=== PATIENT | male | born 1955 | race Caucasian/White ===

== ENCOUNTER 2018-03-09 08:26 | Emergency (ER) | payer OTHER ==
[~2018-03-09] VITALS: Ht 165.1 cm; Wt 65.8 kg
--- NOTE | ~2018-03-09 | EKG ---
[address] [address] ELECTROCARDIOGRAM REPORT Name: CAROL ANN CORREA [id number] Admission: 03/09/18 Attend Phys: Discharge: 03/09/18 Date of : 53 Report #: [id number] THIS REPORT FOR: //name// [facility] ED Test Date: 2018-03-09 Test Time: 09:11:50 Pat Name: CAROL ANN CORREA Department: Room: Gender: M Pipeline Dispatcher: [facility] : 1955 Requested By: Cori Lyle Order Number: [id number] MD: Stan Diaz Measurements Intervals [place] Rate: 67 P: 76 MN: 130 QRS: -46 QRSD: 108 T: 76 QT: 439 QTc: 464 Interpretive Statements Sinus rhythm Left axis deviation Low voltage, extremity leads Compared to ECG 11/18/2015 15:59:18 Left-axis deviation now present Low QRS voltage now present Electronically Signed On 03-11-2018 11:04:01 BRICKLAYER SUPERVISOR by Stan Diaz [email or web address] <ELECTRONICALLY SIGNED> By: Stan Diaz MD 03/11/18 1104 0 0 Stan Diaz MD /EPI
[~2018-03-09 08:26] MED LIST: ADVAIR HFA115 MCG/21 INH; ALBUTEROL2.5 MG/0.1 INH; DOXYCYCLINE 10100 MG PO; EFFEXOR 5050 MG/1 T1 PO; LEVAQUIN 500 M500 M1 PO; MUCINEX TA600 MG/TA1 PO; PREDNISONE 10 M10 MG PO; PROTONIX40 M1 PO
[2018-03-09 09:00] LABS: ABSOLUTE NEUTROPHILS 6.5 thou/uL (1.4-8.2); BASOPHILS 0.9 % (0.0-2.0); EOSINOPHILS 0.7 % (0.0-3.0); HEMATOCRIT 37.6 % (42.0-52.0); HEMOGLOBIN 12.8 gm/dL (14.0-18.0); LYMPHOCYTES 13.3 % (24.0-44.0); MCH 30.7 pg (26.0-34.0); MCV 90.2 fL (80.0-100.0); MONOCYTES 9.4 % (1.0-8.0); PLATELET COUNT 256 thou/uL (150-400); POLYS 75.7 % (36.0-66.0); RBC 4.17 mil/uL (4.50-6.00); RDW 16.5 % (10.5-14.5); WBC 8.6 thou/uL (4.0-11.0)
[2018-03-09 09:15] LABS: CALCIUM 9.4 mg/dL (8.5-10.1); CREATININE 0.9 mg/dL (0.7-1.3); POTASSIUM 4.1 mmol/L (3.5-5.1)
[2018-03-09 10:21] LABS: AMP/METHAMP Negative (Negative); BARBITURATES Negative (Negative); BENZODIAZEPINES Negative (Negative); COCAINE Negative (Negative); METHADONE Negative (Negative); OPIATES Negative (Negative); PCP Negative (Negative)
[2018-03-09 15:28] VITALS: BP 170/89
== END 2018-03-09 15:32 | disposition home or self-care (01) ==
LOC: ER 08:26
PROVIDERS: Student in an Organized Health Care Education/Training Program
DX: F30.9 Manic episode, unspecified (principal); F17.210 Nicotine dependence, cigarettes, uncomplicated; J44.9 Chronic obstructive pulmonary disease, unspecified; Z90.49 Acquired absence of other specified parts of digestive tract

== ENCOUNTER 2018-03-15 16:29 | Emergency (ER) | payer OTHER ==
[~2018-03-15] VITALS: Ht 165.1 cm; Wt 65.8 kg
[2018-03-15 17:02] LABS: URINE BILIRUBIN NEGATIVE (Negative); URINE BLOOD NEGATIVE (Negative); URINE CLARITY CLEAR; URINE COLOR YELLOW; URINE GLUCOSE-RANDOM* NEGATIVE (Negative); URINE KETONES 1+ (Negative); URINE NITRITE NEGATIVE (Negative); URINE PROTEIN (DIPSTICK) NEGATIVE (Negative); URINE SPECIFIC GRAVITY 1.025 (1.005-1.035); URINE UROBILINOGEN 0.2 E.U./dl (0.2-1.0)
[2018-03-15 17:03] LABS: URINE LEUKOCYTES NEGATIVE (Negative)
[2018-03-15 17:08] LABS: AMP/METHAMP Negative (Negative); BARBITURATES Negative (Negative); BENZODIAZEPINES Negative (Negative); COCAINE Negative (Negative); METHADONE Negative (Negative); OPIATES Negative (Negative); PCP Negative (Negative)
[2018-03-15 18:03] VITALS: BP 123/72
== END 2018-03-15 17:50 | disposition home or self-care (01) ==
LOC: ER 16:29
PROVIDERS: Physician Assistant
DX: F31.9 Bipolar disorder, unspecified (principal); J44.9 Chronic obstructive pulmonary disease, unspecified; Z90.49 Acquired absence of other specified parts of digestive tract

== ENCOUNTER 2018-03-20 06:18 | Inpatient (IN) | payer OTHER ==
[~2018-03-20] VITALS: Ht 162.6 cm; Wt 67.6 kg
--- NOTE | ~2018-03-20 | D ---
[facility] [place] [address] DISCHARGE SUMMARY Name: CAROL ANN CORREA Room #: 522A-A DIS IN M.R.#: [id number] Admission: 03/20/18 Attend Phys: Murray Cooper DO Discharge: 03/27/18 Date of : 53 Report #: [id number] THIS REPORT FOR: //name// CC: Murray Cooper FAM physician/PCP DATE OF SERVICE: 03/27/2018 ATTENDING PHYSICIAN: Murray Cooper DO RATE EXAMINER: Axel Joya M.D. REASON FOR ADMISSION: Acute psychosis, referred by [facility] Emergency Room. DISCHARGE DIET: Regular. ACTIVITY LEVEL: As tolerated. DISCHARGE DIAGNOSES: He was discharged to the [facility] Homeless fpc. Psychiatric appointment is with a ____ on 03/29/2018 at 10:30 a.m. [facility] at [place], [place], in [place], [place]. DISCHARGE MEDICATIONS: Trileptal 300 mg twice a day for mood stabilization. He was given a prescription supply for 1 week, as well as continue risperidone 3 mg twice a day given for 1 week and he was supplied with that courtesy the hospital. HOSPITAL COURSE: He was admitted hypervigilant and impulsive for several days, we have had some incidents with him pulling the panic alarm, exhibiting himself, being a general nuisance. He was not clearly physically violent, though he did get several intramuscular injections. I do not think he had to be restrained for any of those. As the hospitalization wore on he was interested in being picked up by his brother and he has a son, Braulio, in [place], [place]. Unfortunately, he has no durable power of erisa attorney or guardian and he was willing to make his son, Braulio, his DPOA, which was carried out. However, the patient does not have any health insurance, certainly no Medicaid, and he is not ill enough where he would be kept for guardianship and conservatorship as he is able to perform his activities of daily living and has basic financial awareness. The hope is that the case management at [facility] will help with his medication compliance. I think in the long run, the patient will need a guardianship, conservatorship, and a placement. No procedures were performed. Laboratories done on the showed hemoglobin 13.2; hematocrit 38.2; white count 8.3 and platelet count 267,000. He was hyperammonemic with a level of 50. There is concern for alcoholism. [address] [address] DISCHARGE SUMMARY Name: CAROL ANN CORREA Room #: 522A-A DIS IN .R.#: [id number] Admission: 03/20/18 Attend Phys: Murray Cooper DO Discharge: 03/27/18 Date of : 53 Report #: [id number] DISCHARGE DIAGNOSIS: Bipolar 1 disorder, most recent episode manic with psychotic features, improved. He has a history of marijuana and meth use, alcohol use, unknown degree. The patient was not particularly admitting. Tobacco use disorder. The patient's TSH is 1.470, total T3 110, and free T4 0.8. UDS was negative. Alcohol was negative. Urinalysis was negative as well. Prognosis is guarded to poor given chronic noncompliance, substance use, homelessness, failure to follow up at the [facility] setting. VITAL SIGNS: At discharge as follows: Temperature 36.2, pulse 84, respirations 18, BP 118/81 and pulse ox 97%. GENERAL: Well-developed, well-nourished male wearing glasses. Attention and concentration limited. Thought process linear and goal directed. Thought content focused on discharge, not going to a homeless fpc. ____ formally tested. Insight limited. Judgment limited. Fund of knowledge below average. By: [id number] Mary Jo Almanza, SAEED /nt
[2018-03-20 08:00] VITALS: BP 156/118
[2018-03-20 13:49] VITALS: BP 130/77
[2018-03-20 14:04] LABS: ABSOLUTE NEUTROPHILS 5.7 thou/uL (1.4-8.2); BASOPHILS 0.7 % (0.0-2.0); EOSINOPHILS 3.2 % (0.0-3.0); HEMATOCRIT 38.2 % (42.0-52.0); LYMPHOCYTES 19.9 % (24.0-44.0); MCH 30.9 pg (26.0-34.0); MCHC 34.1 g/dL (28.0-37.0); MCV 90.7 fL (80.0-100.0); MONOCYTES 7.5 % (1.0-8.0); PLATELET COUNT 267 thou/uL (150-400); POLYS 68.7 % (36.0-66.0); RBC 4.22 mil/uL (4.50-6.00); WBC 8.3 thou/uL (4.0-11.0)
[2018-03-20 14:15] LABS: CALCIUM 8.9 mg/dL (8.5-10.1); CREATININE 0.8 mg/dL (0.7-1.3); POTASSIUM 4.5 mmol/L (3.5-5.1)
[2018-03-20 14:19] LABS: ALBUMIN 3.3 g/dL (3.4-5.0); MAGNESIUM 1.9 mg/dL (1.8-2.4); PHOSPHORUS 4.6 mg/dL (2.5-4.9); TOTAL BILIRUBIN 0.3 mg/dL (<0.1-1.0); TOTAL PROTEIN 7.5 g/dL (6.4-8.2)
[2018-03-20 16:44] LABS: URINE BILIRUBIN NEGATIVE (Negative); URINE BLOOD NEGATIVE (Negative); URINE CLARITY CLEAR; URINE COLOR YELLOW; URINE GLUCOSE-RANDOM* NEGATIVE (Negative); URINE KETONES NEGATIVE (Negative); URINE LEUKOCYTES NEGATIVE (Negative); URINE NITRITE NEGATIVE (Negative); URINE PROTEIN (DIPSTICK) NEGATIVE (Negative); URINE SPECIFIC GRAVITY < 1.005 (1.005-1.035); URINE UROBILINOGEN 0.2 E.U./dl (0.2-1.0)
[2018-03-20 16:50] LABS: AMP/METHAMP Negative (Negative); BARBITURATES Negative (Negative); BENZODIAZEPINES Negative (Negative); COCAINE Negative (Negative); METHADONE Negative (Negative); OPIATES Negative (Negative); PCP Negative (Negative)
--- NOTE | 2018-03-20 18:19 | NUR ---
PT ARRIVED UNIT ON CART AT 0800H. PT ALERT. PT ABLE TO AMBULATE SELF TO BED. PT ABLE TO TOLERATED MEALS AND ATTEND GROUP. PT NEW ORDERS RECEIVED AND ACKNOWLEDGED. PT ABLE TO TORELATE MEDS. PT IS HYPERVERBAL AND INTRUSIVE. PT REQUIRES FREQUENT REDIRECTION. PT CURRENTLY SLEEPING IN ROOM AND CONTINUES TO BE MONITORED FOR SAFETY.
[2018-03-20 19:41] VITALS: BP 107/80
--- NOTE | 2018-03-21 00:17 | NUR ---
The patient has been resting quietly in bed at this time. Alert et oriented x 3. Makes needs known. Walks with a steady gait. Very hyperverbal earlier in the shift. Earlier in the shift, the patient was asking for snacks continually. He received one, along with juice, and his medications prior to going to bed. Denies pain earlier in the shift. Remains on 12 minute checks for his safety.
--- NOTE | 2018-03-21 05:35 | NUR ---
The patient has been sleeping most of the security shift supervisor. Resp. even, and unlabored. Remains on checks for the patient's safety.
--- NOTE | 2018-03-21 05:48 | NUR ---
The patient slept 6.2 hours last night.
--- NOTE | 2018-03-21 09:52 | NUR ---
ASSUMED PATIENT CARE AT 0700 AM. PATIENT LYING IN BED,SLEEPING. AWAKENED FOR BREAKFAST AT 0745. PATIENT DRESSED SELF, CAME TO BREAKFAST, ATE 100% OF MEAL. HYPERTALKATIVE, PACING, SPEAKING LOUDLY. DIFFICULT TO REDIRECT. COMPLIANT WITH MEDICATIONS. INTRUSIVE, INTERRUPTIVBE. DOES NOT SHOW SIGNS OF DEPRESSION; PSYCHOTIC BEHAVIOR. REDIRECT POSSIBLE; CONTINUE TO MONITOR.
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
[2018-03-21 11:33] VITALS: BP 144/68
[2018-03-21 12:28] VITALS: BP 140/81
--- NOTE | 2018-03-21 16:00 | NUR ---
PATIENT'S BEHAVIOR WAS LOUD, DISRUPTIVE AND IRRADICAL THROUGHOUT THE MORNING. MEKA ADMINISTERED PRN'S THAT WERE ON PATIENT'S E-MAR, WELL A NEW ORDER FOR ZYPREXA, 20 MG IM AT 11:50 A.M. ABOUT TEN MINUTES AFTER THE IM, PATIENT WAS OBSERVED SLEEPING WHILE SITTING UP IN THE DAYROOM. AT APPROXIMATELY 12:30, PATIENT WALKED INTO HIS ROOM AND LAID HIMSELF DOWN ON HIS BED. PATIENT HAS BEEN SLEEPING SINCE THAT TIME. TWELVE MINUTES CHECS BEING DONE. CONTINUE TO MONITOR.
--- NOTE | 2018-03-21 18:06 | NUR ---
PATIENT GOT UP TO EAT DINNER; HAS BEEN LOUD AND INTRUSIVE, TO A LESSER DEGREE THAN THIS A.M. HAS BEEN DEMANDING AND CONSTANTLY ASKING FOR OTHER PEOPLE'S FOOD, AND TEA, AND OTHER SUPPLIES; I.E., WATER PITCHER. PATIENT COMPLIANT WITH MEDICATIONS. CONTINUE TO MONITOR.
[2018-03-21 20:03] VITALS: BP 100/53
--- NOTE | 2018-03-21 20:55 | NUR ---
ASSUMED PATIENT CARE AT APPROXIMATELY 1900. VERBAL REPORT RECEIVED FROM MAGALYS HARTLEY. PATIENT PRESENT IN THE DAYROOM UPON ARRIVAL TO SHIFT. LOUD. INTRUSIVE. IMPULSIVE. DIFFICULT TO VERBALLY REDIRECT USING THERAPEUTIC COMMUNICATION AND ASSESSMENT OF ANY UNMET NEEDS. RACING THOUGHTS. HYPERVERBAL SPEECH. FLIGHT OF IDEAS. DANGER TO SELF WITH POOR BOUNDARIES AND OTHER PATIENTS ON THE UNITS. PATIENT IN OTHER PATIENTS PERSONAL SPACE WITH CONSTANT VERBAL REDIRECTION AND ENCOURAGEMENT TO RESPECT OTHER PATIENTS UTILIZED WITH SUCCESS FOR SHORT PERIODS OF TIME ONLY. CONTACT DR. SEPULVEDA, PSYCHIATRIST LABORATORY AIDE, PROVIDED VERBAL REPORT ON PATIENT BEHAVIORS INCLUDING IMPULSIVENESS AND POOR BOUNDARIES WITH OTHER PATIENTS PERSONAL SPACE, TOUCHING PATIENTS SHOULDERS WITHOUT CONSENT, AND ATTEMPTING TO REACH OVER THE NURSING STATION DOOR TO OPEN THE DOOR AND ENTER THE NURSING STATION. NEW ORDERS RECEIVED FOR HALDOL 5MG IM NOW, BENADRYL 25MG NOW AND ATIVAN 1MG IM NOW. TORBAD PER POLICY. CONTACTED SECURITY TO PROVIDE STANDBY MINER PICK FOR PATIENT AND STAFF SAFETY. PATIENT COMPLIED WITH INJECTIONS AFTER EDUCATION, LIFTING UP SHIRT, AND INJECTIONS PLACED IN LEFT VASTUS LATERALIS. TOLERATED WELL. PATIENT COOPERATIVE WITH STAFF TO REMAIN IN ROOM TO ALLOW MEDICATIONS TO WORK THERAPEUTICALLY AND DECREASE STIMULI. ALARM SET TO ALERT AND EDUCATION PROVIDED TO PATIENT. VERBALIZED UNDERSTANDING. PT APPEARANCE IS DISHEVELED THIS SHIFT. APPETITE IS GOOD, CONSUMING ALL OF HIS EVENING SNACK AND HAD WATER REFRESHED AT SNACK AND AT BEDISIDE. PT HAS FLIGHT OF IDEAS THIS EVENING AND A VERY SHORT ATTENTION SPAN, REPORTS "I AM MANIAC". MEDICATION COMPLIANT WITH SCHEDULED MEDICATIONS. PREOCUPPIED THOUGHTS REGARDING DISCHARGE "TOMORROW I HOPE". PATIENT APPEARS TO LACK IMPULSE CONTROL AND POOR JUDGEMENT IN SOCIAL SITUATIONS WITH POOR BOUNDARIES AND VERY INVASIVE IN OTHERS SPACE AND CONVERSTAIONS. BED IN LOWEST POSITION. DRINK WITHIN REACH. ALARM ACTIVATED. VERBALLY DENIES ANY FURTHER NEEDS AT THIS TIME. WILL CONTINUE TO MONITOR PT CLOSELY FOR SAFETY AND EFFECTIVENESS OF PRN MEDICAITON ADMINISTERED, SEE MAR.
--- NOTE | 2018-03-21 21:59 | NUR ---
CONTACTED DR. SEPULVEDA, PAPER COATING MACHINE OPERATOR PSYCHIATRIST, PROVIDED VERBAL REPORT PATIENT FOUND TO HAVE A BLANKET, TIED IN KNOT, ON BED. ASSESSED SUICIDAL IDEATION WITH OR WITHOUT A PLAN AND PATIENT RESPONDED WITH NONSENSICAL STATEMENTS AND FLIGHT OF IDEAS STATING "GEORGES DUDLEY. NAYELY LOREDO. MY LIVER IS BAD FROM DRINKING". NO STATEMENTS OF SUICIDAL IDEATION. CONFUSION CONTINUES WITH IMPULSIVE BEHAVIOR INCLUDING POOR BOUNDARIES WITH STAFF, HYPERVERBAL/LOUD SPEECH. NO VERBAL RESPONSE PROVIDED WHEN ASSESSED IF PATIENT WOULD REMAIN SAFE ON UNIT. RECEIVED NEW PHYSICIAN ORDERS FOR WITHIN LINE OF SIGHT FOR SAFETY, NOTIFIED [employer] DEVELOPER'S OF NEW ORDER AND DWAINE ENGLE, CURRENTLY REMAINS WITHIN LINE OF SIGHT OF PATIENT TO ENSURE SAFETY.
--- NOTE | 2018-03-21 23:29 | NUR ---
PATIENT HAS REMAINED IN BED SINCE ADMINISTRATION OF PRN IM MEDICATION, SEE MAR. CONTINUES WITH WITHIN LINE OF SIGHT ORDER FOR SUICIDE PRECAUTIONS AFTER FINDING A BLANKET IN HIS ROOM TIED IN KNOTS. ALL ADDITIONAL BLANKETS AND SHEET FROM THE ADDITIONAL BED IN HIS ROOM REMOVED. CURRENTLY ZITA ISIDRO MONITORING PATIENT PER PHYSICIANS ORDER. WILL CONTINUE TO MONITOR PT CLOSELY TO ENSURE ANY ADDITIONAL UNMET NEEDS ARE MET.
--- NOTE | 2018-03-22 05:41 | NUR ---
PATIENT AMBULATED OUT OF BED THIS CENTER CONSULTANT AND WENT STRAIGHT TO THE DAY AREA. REMAINS ON WITHIN LINE OF SIGHT, KADIE ISIDRO, CURRENTLY REMAINS ON WITHIN LINE OF SIGHT AND CHARTED APPROPRIATELY ON ROUND SHEET. PATIENT ORIENTED TO TIME THIS MORNING AND CHOSE TO "TAKE A NAP FOR A WHILE", AMBULATED BACK TO BED. ONCE IN BED PATIENT PREOCCUPIED THOUGHTS OF HIS BELONGINGS INCLUDING HIS "WALLET" DEMANDING FOR THIS NURES TO CONTACT HIS PLACE IN [place] TO FIND HIS WALLET. ORIENTED PATIENT TO TIME OF MORNING AND ENCOURAGED PATIENT TO MAKE ANY PHONE CALLS LATER THIS MORNING WHEN THE PHONES ARE TURNED ON FOR PATIENT USE, PATIENT AGREED TO MAKE PHONE CALLS LATER THIS MORNING. BED REMAINS IN LOW POSITION, ALARM ACTIVATED WITH NO EXTRA BLANKETS AND OR SHEETS AT BEDSIDE FOR PATIENT SAFETY. PATIENT IS MORE CLEAR THIS MORNING STATING "I JUST LIKE TO TIE MY BLANKETS SOMETIMES" WHEN ASSESSED REASON FOR TIEING BLANKETS FOUND IN ROOM. VERBALLY AGREES TO REMAIN SAFE ON UNIT STATING "HELL NO I WASN'T GOING TO HARM MYSELF WITH THE BLANKET". CONTINUES ON WLS MONITORING PER PHYSICIANS ORDER/WILL ASSESS PATIENT THIS MORNING AND NEED TO CONTINUE WLS ORDERS. SLEPT WELL OVERNIGHT APPROXIMATELY 10.5 HOURS.
--- NOTE | 2018-03-22 08:56 | NUR ---
PATIENT IN BED AT 0700 A.M., AROSE SHORTLY AFTER. USED THE BATHROOM, THEN TO DINING ROOM, WAITED FOR BREAKFAST. ATE 75-90% OF BREAKFAST. BP LOW, 85/55, HR 63. NURSE WILL RE-CHECK AFTER MORNING GROUP, WHICH PATIENT IS ATTENDING AT THE PRESENT TIME. COMPLIANT WITH MEDICATIONS. CONTINUE TO MONITOR.
--- NOTE | 2018-03-22 09:08 | NUR ---
PATIENT HAS FLAT AFFECT THIS A.M., NO BEHAVIORS, CALM MOOD TO DATE THIS SHIFT. CONTINUE TO MONITOR.
[2018-03-22 12:38] VITALS: BP 85/55
[2018-03-22 20:40] VITALS: BP 94/62
--- NOTE | 2018-03-23 02:54 | NUR ---
ASSUMED CARE AT 1900, ASSESSMENT COMPLETED IN PT ROOM; IRRITABLE AT HAVING LIGHT TURNED ON BUT AGREEABLE FOR NURSING ASSESSMENT TO BE DONE. DENIED ANY HALLUCINATIONS, SI/HI, AND NO BEHAVIORS EXHIBITED. DENIED GI UPSET, PAIN, OR RESP DISTRESS. WALKED OUT TO ACTIVITY ROOM ONE TIME, GOT A CUP OF WATER, SAT FOR ABOUT 5 MINUTES THEN RETURNED TO ROOM AND LAID DOWN. ACCEPTED HS MEDS WITHOUT INCIDENT. PT DID ASK IF HIS SISTER, MITCH, KNEW HE WAS IN THE HOSPITAL; STATED SHE HAD BROUGHT HIM TO PSYCH UNITS IN THE PAST, SAYS HE DOES NOT KNOW HER PHONE NUMBER TO CALL HER. HAS NO OTHER COMPLAINTS, HAS SLEPT THIS SHIFT, WILL CONTINUE TO MONITOR.
[2018-03-23 08:52] VITALS: BP 91/44
--- NOTE | 2018-03-23 13:46 | NUR ---
ASSUMED PT CARE AT 0700H. PT ALERT. PT ABLE VERBALISE CONCERN. PT HAS NO SUCIDIAL IDEATION TO HURT SELF OR OTHER. PT BP MED HELD BP WAS 91/44. PT STATES NO LIGHTHEADNESS. PT ABLE TO TOLERATE MEDS AND BREAKFAST. PT AMBULATES STEADY. PT TALKS LOUD AND HAS BRIEF ATTENTION SPAN OF IDEAS. PT CONCERN OF PLAYOFFS. PT REQUIRES FREQUENT REDIRECTIONS TO SET LIMITS FOR ACTIVITIES. PT CONTINUES TO BE MONITORED FOR SAFETY [id number].
--- NOTE | 2018-03-23 15:33 | NUR ---
Pt is a 62 year-old male dignosed with Psychosis, Unspecified disorder. Pt is really talkative and has flight of ideas. Pt stated " Augustine Driver and Carey Hurtadoyer are looking for me because they flew with me long time ago. They don't want me to fly". Pt met with SW in the office and completed assessment. Pt was cooperative, but was being redirected quiet often during the meeting. Pt had difficulty focusing and would jump from conversation to something unrelated to questions asked. Pt appeared to be tired, but reported that he slept 9 hours last night. Pt discussed homelessness and stated he's been homeless for a long time. He goes to [facility] in [place] to get food. Pt reported having housing voucher and his brother has it. SW contacted brother and spoke with him. Abimael reported that Pt does not have housing voucher, but received a form to fill out for the voucher. He futher stated that it's process and that he doen't think Pt will pass interview in order to be approved for voucher. Abimael further reported Pt has no place to stay and has been in and out of intermediate due to his behaviors. Pt reported releasing from [facility] in February 2018. He stated Pt spent most of his money staying in motel and got kicked out because of breaking things. Abimael stated Pt gets figetty and starts throwing and breaking things everywhere he goes. He reported he can't get Pt to do anything and keeps losing Pt by not knowing his locations most of the time. Abimael reported seeing Pt in youtube video with hospital gown on walking in the street and people were making fun of him. Abimael sounds upset about that and stated "that's degrading and I don't know who would do that to him". He reported [facility] was trying to put Pt in half-way, but he got arrested and was sent to intermediate. ANTONIO dicussed possible placement and DPOA/guardianship and Abimael stated Pt's son Mormonism would be the person assigned DPOA. ANTONIO provided Abimael Lopes's number to f/u. Pt talked about his two Sons, Mormonism and Hunter Rojas. He reported that Hunter lives in [facility], but is homeless and Mormonism lives in [place] and is the oldest child. Pt reported working for [employer] long time ago and got fired in 1997 and never worked since. Pt stated he receives $1580 in disability and his check is mailed to [address] [facility] (Marcella's home, a longtime friend). He reported that he doesn't have any identification documents after the police took his wallet. SW will continue to communicate with the family and speak with Mormonism when he calls SW to beth possible placement/stable housing for Pt upon d/c.
--- NOTE | 2018-03-23 17:47 | NUR ---
PATIENT TALKETIVE AND RAISING FROM VOICE FROM TIME TO TIME ALL THROUGHTOUT THE DAY. WAS ATTEMPTING TO BE DISRUPTIVE, BUT WAS ABLE TO BE REDIRECTABLE. REMAINS GRANDIOSE, CONTINUING CLOSE MONITORING. ATE 100% OF LUNCH AND DINNER. WILL CONTINUE TO ASSESS AND ASSIST WITH ADLs NEEDED.
[2018-03-23 19:36] VITALS: BP 112/73
--- NOTE | 2018-03-23 20:16 | NUR ---
ASSUMED PATIENT CARE AT APPROXIMATELY 1900. RECEIVED REPORT FROM OFF GOING RN. PATIENT IN DAYROOM UPON ARRIVAL TO SHIFT WITH VERY LOUD VOICE. INTRUSIVE WITH STAFF. POOR BOUNDARIES WITH STAFF AND PATIENTS, ATTEMPTING TO TOUCH PATIENT/STAFF, HUG STAFF. SEXUAL PREOCCUPATION THIS SHIFT, MAKING SEVERAL COMMENTS TO FEMALE STAFF "GIVE ME A KISS". "COME BE MY GIRLFRIEND AND SIT BY ME", WHILE POINTING AT THE SEAT NEXT TO HIM. PROVIDED THERAPEUTIC VERBAL REDIRECTION TO REMAIN WITH APPROPRIATE BOUNDAIRES, RESPECT STAFF AND PATIENTS, AND TO REMAIN AT APPROPRIATE LEVEL OF VOICE FOR OTHER PATIENTS ON THE UNIT. PATIENT IS FORGETFUL THIS SHIFT WITH REPEATING QUESTIONS TO THIS NURSE INCLUDING SEVERAL REQUESTS FOR MEDICATION THAT WAS ALREADY ADMINISTERED THIS HS. PATIENT NOT SUCCESSFUL WITH VERBAL REDIRECTION ATTEMPTS AND THERAPEUTIC SUPPORT. ZYPREXA PO PRN ADMINISTERED FOR PSYCHOSIS AND CONTINUING ESCALATION. CONTINUES WITH HYPERVERBAL SPEECH, FLIGHT OF IDEAS, LOUD VOICE, REPEATING QUESTIONS AND STATEMENTS. APPEARANCE IS POOR, ENCOURAGED HYGIENE TASKS THIS EVENING APPEARANCE IS DISHEVELED, HAIR UNKEMPT, OWN SHIRT IS UNCLEAN, WEARING GOWN BOTTOMS WRINKLED AND DIRY, YELLOW SLIPPER SOCKS WITH PERSONAL HOUSE SLIPPERS. GAIT IS STEADY. IMPULSIVE, POOR JUDGEMENT AND INSIGHT. PATIENT IS POSSIBLY RESPONDING TO INTERNAL STIMULI, WAVING AT UNSEEN OTHERS AND SMILING INAPPROPRIATELY. FLIGHT OF IDEAS. ALERT AND ORIENTED TO SELF AND INPATIENT UNIT ONLY, NOT HOSPITAL NAME. APPETITE IS GOOD CONSUMING ALL OF HS SNACK WITH ICE WATER REFRESHED. VERBALLY DENIES ANY UNMET NEEDS. WILL CONTINUE TO MONITOR PT PER PHYSICIANS ORDER FOR SAFETY AND ANY ADDITIONAL UNMET NEEDS.
--- NOTE | 2018-03-23 22:45 | NUR ---
PATIENT SITTING IN DAY AREA, WATCHING GAME. CONTINUES TO REMAIN IMPUSLIVE, INTRUSIVE, LOUD, INTERRUPTING STAFF AND OTHER PATIENTS, SEXUALLY PREOCCUPIED TOWARDS STAFF CONTINUING TO REQUEST KISSES, HUGS, AND TO BE HIS "GIRLFRIEND". ATTMPTS AT VERBAL REDIRECTION, DISTRACTION, COMFORT NOT SUCCESSFUL AND CONTINUES BEHAVIORS. PHYSICIAN CONTACTED, DR. SEPULVEDA, AND REPORTED PATIENT REQUEST FOR SLEEP AID OR TO "CALM DOWN". NEW ORDER RECEIVED FOR ZYPREXA 5MG PO NOW, GIVEN, PATIENT COMPLIANT, AND EDUCATION PROVIDED PRIOR TO ADMINISION. WILL CONTINUE TO MONITOR FOR SAFETY PER ORDER.
--- NOTE | 2018-03-24 06:30 | NUR ---
PATIENT SLEPT WELL OVERNIGHT AFTER SECOND DOSE OF ZYPREXA ADMINISTERED PER ORDER. NO DIFFICULTY STAYING ASLEEP, AMBULATING OUT OF BED X 1 TO VOID AND BACK TO BED. SLEP 7.5 HOURS OF SLEEP.
[2018-03-24 09:30] VITALS: BP 113/59
--- NOTE | 2018-03-24 13:27 | NUR ---
ANTONIO received call on 03/23/18 ([phone]) from Pt's son Braulio. SW invited Pt in the office to be part of the phone conversationas Pt wanted to speak with his son. ANTONIO discussed DPOA/Guardianship with Braulio and possible placement. He stated that he has been trying to place his father, but has been difficult due to living in [place]. And also his uncle has had a hard time locating Pt due to homelessness. Braulio stated that he wants to be involved in Pt's care and is willing to be contacted and be part of th etreatment plan meeting over the phone. He provided Pt's sister Landy Rojas ([phone]) to be contacted if needed and stated she wants to be involved as well. Braulio and Pt agreed for Braulio to be his DPOA/gaurdian. ANTONIO had US Jain as witness when both parties agree to DPOA designate. ANTONIO provided Braulio our fax ([phone]) number to fax over DPOA form and informed him that another SW (Willis Andersen will continue to work with Pt as this SW only works on weekend. ANTONIO also indicated to Braulio that SW will f/u with him to notify date and time of family meeting for treatment plan. Pt and his son had a positive and heartfelt conversation. Pt informed his son that he has housing voucher and Varghese has it. ANTONIO clarified that information and explained to Braulio that Pt received form in the mail to fill out to start process of possibly obtain housing voucher. Braulio stated he understands. He stated he will f/u on 03/25/18.
--- NOTE | 2018-03-24 13:30 | NUR ---
ASSUMED PT CARE AT 0700H. PT ALERT. PT HAS NO S/S OF DISTRESS. PT STATES NO THOUGHTS OF HARMING SELF OR OTHERS. PT COOPERATIVE WITH THERAPY. PT ALSO HAD SHOWER. PT SLEPT LATER. PT CURRENTLY EATING IN THE DINING ROOM. PT CONTINUES TO BE MONITORED FOR SAFETY [id number].
--- NOTE | 2018-03-24 14:00 | NUR ---
SW met with PT in her office and reviewed DPOA form and ensured that Pt undersatnds the reason for having DPOA. Pt stated he understood and still wants Buddhist to be his DPOA. SW assisted Pt with filling out form. SW did not have form notarized as Dr. Cooper previpously stated that he will have the public safety director come to [facility] to notarize the document had already left. While SW was meeting with Pt, Landy, Pt's sister called ([phone]) on 03/24/18 at 9:44-10:34 and inquired about Pt and his care. SW asked Pt to be included in the conversation. Pt and Landy spoke for a few minutes. Pt seemed happy to hear from his sister as well as Landy. They both cried as they talked with each other. SW then asked Pt if he authorizes SW to discuss his care and d/c plan with Landy and Pt agreed. SW then explained to Landy that Pt might be d/c to a halfway because Pt cannot live independenly at this time. However, lack of insurance (Medicaid) may pose difficulty of Pt getting into a halfway. ANTONIO informed Landy that the medical team will have a family meeting to further discuss d/c plan this week before making a firm decision. Landy continued to speak with Pt and provided updates about other family memebers. Landy continued to speak with SW after Pt left. Landy stated that she wants to be involved as well. Landy reported that Pt's nephew's house is not a good enviroment for him to be in as they drink and do illegal drugs. She also reported that Pt's other son, Hunter should not be notified of Pt's location as he takes Pt's money and leaves Pt outside. She stated that "Hunter will take Raffaele's money and would not even open the door for him. He would go outside to talk to him and then went back inside and close the door on his face". Landy stated Pt also has a friend by the name of Marcella Jimenez who receives Pt's check in the mail. "Marcella refuses to give the check to Pedro until Pedro pays her". ANTONIO explained that if Pt's being taken advantage of or financially abused, SW will hotline the inviduals involved. SW encouraged Landy to discussed the issue with all accuracy during family meeting so hotline call can be made if necessary. Landy agreed. At the end of the conversation, Landy asked SW to tell Pt that "I love him very much". Landy and Pt had verbally expressed their family love for eache other throughout their conversation. ANTONIO will continue to work with Pt and d/c plan with his family as further needs arise.
--- NOTE | 2018-03-24 14:31 | NUR ---
Marcella Rojas called on 03/24/18 and inquired about Pt. When SW spoke with Landy earlier in the day, Landy stated that she has 4 other sisters (Marcella, Violeta, live in [place], [place], lives in [place] and Roxanne possibly lives in [place]). SW spoke with Marcella and confirmed her identity. Marcella reported that she and her other sisters (excluded Landy) have been estranged from Pt. She stated that Pt has been having some issues off and on and they have stayed away for a while. She stated that her sister Landy called her and told her Pt was at [facility]. Marcella asked for vising hours and ANTONIO informed Marcella that SW is not sure of the exact visiting hours, but she is welcome to visit PT during the day. Marcella stated she will ask her sister Violeta if she wants to come with her. Marcella thanked ANTONIO and stated she will be visiting. SW notified Pt that Marcella called.
--- NOTE | 2018-03-24 15:59 | NUR ---
ANTONIO contacted Braulio, Pt's son and notified him that Pt filled out DPOA form and designated him as Pt's DPOA and there is no need for him to fax documents to us. Braulio asked what additional items DPOA covers. ANTONIO explained that DPOA is only for healthcare decisions in case his father is unable to make decisions for himself while in the hospital, the doctor would contact him. ANTONIO also explained that Guardianship requires other paperwork to be filled out and court is also involved. Dale stated understanding. He stated that he cannot move his father with him nor he will come back to . ANTONIO encouraged Braulio to call for additional questions if needed. He was informed that he will be informed once Dr. Cooper schedules the family meeting. Varghese came visit Pt while ANTONIO was on the phone with Braulio. ANTONIO met with Abimael and informed him that Pt filled out DPOA form and will need to be notarized before it's effective. Abimael wants to know the d/c plan. ANTONIO explained that Dr. Cooper will have the family meeting and they can discuss what the d/c plan will be. Abimael is willing to attend family meeting and would like to be made aware of time and date. He reiterated that Andrew Harrison's son should not be contacted or involved Pt's care as he is not posistive support system. ANTONIO encouraged Abimael to f/u on 03/25/18 for further information on d/c.
[2018-03-25] VITALS (7 sets, daily range): BP systolic 102–129; BP diastolic 55–97
--- NOTE | 2018-03-25 06:00 | NUR ---
PATIENT WENT TO SLEEP AT 2230. SLEPT WELL UNTIL 0420. CAME OUT TO NURSES STATION DEMANDING MULTIPLE ITEMS LOUDLY. BANGING ON NURSES STATION GLASS. WAS ABLE TO GIVE HIM A PRN ZYPREXA BEFORE MOST OF AGITATION, BEHAVIOR BEGAN. YELLING IN HALLWAY ATTEMPTING TO WAKE UP OTHER RESIDENTS. EVENTUALLY CALMED DOWN, WENT TO ROOM TO SLEEP. EXHIBITED BEHAVIORS CONSISTENT WITH SIMILAR EVENTS DURING HOSPITALIZATION SUCH SLAMMING/CRUSHING WATER CUP ON TABLE, TRYING TO OPEN NURSES STATION DOOR, LOUD ANNOYING TALKING IN HALLWAYS.
--- NOTE | 2018-03-25 11:13 | NUR ---
DUE TO PATIENT'S INTRUSIVENESS, AND DISRUPTIVE BEHAVIOR FOR THE FIRST THREE HOURS OF A.M. SHIFT, NURSE OBTAINED AN NEW ORDER: GEODON 20 MG IM NOW AT 0945 A.M. HOWEVER, PATIENT BECAME CALM FROM PREVIOUS DOSE OF PRN ZYPREXA. IM NOT NEEDED; DR. SEPULVEDA DISCONTINUED IM GEODON 20 MG. CONTINUE TO MONITOR PATIENTL.
--- NOTE | 2018-03-25 16:08 | NUR ---
DR. SEPULVEDA MADE AWARE OF PATIENT'S INTRUSIVE, LOUD BEHAVIOR. ALSO, THAT PATIENT HAD SLAMMED HIS FIST AGAINST THE GARAGE DOOR. DR. SEPULVEDA SPOKE TO PATIENT IN HIS ROOM IN AN EFFORT TO REASON WITH AND CALM PATIENT. PATIENT STATED TO PHYSICIAN THAT HE IS JUST TRYING TO GET OUT AND GET SOME AIR. PATIENT IMMEDIATELY CAME OUT OF HIS ROOM AND BEGAN PREVIOUS BEHAVIOR. NO NEW ORDERS AT THIS TIME.
--- NOTE | 2018-03-26 02:59 | NUR ---
PT LOUD, OBNOXIOUS, AND DEMANDING. DID RESPOND TO REDIRECTION, AFTER SEVERAL ATTEMPTS. TOOK MEDS PRESCRIBED, LOOKING FORWARD TO POSSIBLE DC IN THE AM. SLEPT WELL THROUGH THE NIGHT.
[2018-03-26 07:30] VITALS: BP 101/72
--- NOTE | 2018-03-26 08:26 | NUR ---
ANTONIO called in a left a message for pt brother Enrique Rojas. ANTONIO asked for a return call.
[2018-03-26 08:43] VITALS: BP 148/72
--- NOTE | 2018-03-26 08:44 | NUR ---
SW completed pt DPOA paperwork. Pt stated that he would be discharge today. Dr. Cooper stated that he will discharge pt. Pt does not have a place to go. He would have to go homeless long term. SW will follow-up with pt upon discharge.
[2018-03-26] MEDS ORDERED: OXCARBAZEPINE300 MG PO (09:28)
[2018-03-26] MEDS ORDERED: RISPERDAL 1 MG T1 MG PO (09:28)
--- NOTE | 2018-03-26 10:47 | NUR ---
SW met with pt to discuss is upcoming appointment with [facility] on March 29, 2018. SW attempted to call his brother Ghislaine to let him know about the appointment. Pt will be assigned a psychiatrist and director of casework services.
[2018-03-26 11:03] VITALS: BP 148/72
[2018-03-26 19:39] VITALS: BP 124/71
[2018-03-26 21:31] VITALS: BP 124/71
[2018-03-26 21:34] VITALS: BP 124/71
--- NOTE | 2018-03-27 02:19 | NUR ---
PT UNSURE OF THE FUTURE. SON IS DPOA AND HE SHOULD BE"TAKING CARE OF ME." UNDERSTANDS THAT FUTURE OPTIONS FOR HIM ARE LIMITED, FAMILY UNWILLING TO TAKE ON RESPONSIBILITY OF CARING FOR HIM, DUE TO HIS DISRUPTIVE AND UNPREDICTABLE BEHAVIOR. ABLE TO REMAIN GENERALLY QUIET AND CALM MUCH OF THE EVENING. TOOK HS MEDS SCHEDULED. SLEPT WELL THROUGH THE NIGHT.
[2018-03-27 08:52] VITALS: BP 118/81
--- NOTE | 2018-03-27 11:22 | NUR ---
PATIENT IS ALERT, UP AND OUT ON THE UNIT, HAD BREAKFAST. PATIENT DENIES SUICIDAL AND HOMOCIDAL IDEATION. PATIENT DENIES DEPRESSION, AND ANXIETY, DENIES AUDITORY/VISUAL HALLUCINATION. NO AGGRESSIION OR AGITATION NOTED AT THIS TIME. PATIENT WILL BE DISCHARGED TODAY PER DR. SEPULVEDA, AND THE PSYCHIATRY ADULT PHYSICIAN TO [facility]. PATIENT CURRENTLY IN BED SLEEPING, WILL MONITOR FOR SAFETY.
--- NOTE | 2018-03-27 14:36 | NUR ---
DISCHARGE & AFTERCARE PLAN Patient name: CAROL ANN ROJAS Date of Admission: 03/20/18 Date & Time of Discharge: March 27, 2018 at 11:45am Discharged to: Homeless Custodial Name of Placement: [facility] Address: [address] [place] [address] Placement contact: Staff at the [facility] Via: Accompanied by: Himself Symptoms that may indicate need for re-assessment: Pt need to be reassessed at [facility] for pyschiatric and case management services. If any of the above symptoms re-occur, call the patient's outpatient Psychiatrist listed below or call Crisis Line at: [facility] FOLLOW-UP CARE: Pt need [place] follow[place] with [place] [facility] Psychiatrist: Dr. Vela Date: March Address: [address] [place] [address] Appointment Date: March 29, 2018 Time: 10:30am Therapist: Date: Address: Time: Appointment Date: Community Clinic/Primary Care/Other Medical Referral: Surveyor Rod Helper: Phone: Address: Appointment Date: Primary Care Clinic: Phone: Address: Appointment Date: Reason for referral: [facility]/OPS/[facility] Boat Puller: Phone: Address: Surveyor Rod Helper: Start Date: Payee: Phone: 12 step/CD Program: Phone: Substance Use/Tobacco Treatment: Outpatient Counseling Appointment Date: Time: Phone/Fax/email: *Quit line, E-health, Internet structured programs based on patient's needs. Other: Phone: Appointment Date: Time: Psychotropic medication will continue to be titrated to signs, symptoms and behaviors, in an attempt to transition and taper to effective monotherapy. Pt was given medication Oxcarbezine, Risperidone Diet on Discharge: Regular Legally Authorized Hematology Supervisor: Name: Braulio Rojas Phone #: [phone] Fax: Other Community Resources/Referrals: [facility] assistance [facility], and payee through [facility] for assitance with SSI. electrical tryout person: Phone #: Goals following DC: Pt was discharge for outpatient services to recieve continuance care. Pt completed goal of medication management. Additional instructions attached: Name, Relationship, Phone/Fax of Designee(s) to receive copy of aftercare plan: The above person(s) is/are authorized to receive a copy of this aftercare plan. This aftercare plan has been planned & reviewed with me, and I understand the recommendations of this aftercare plan. Pt receieve assistance with [facility] diversion program for housing. I decline to designate another person to receive a copy of this plan. Pt receieved a copy of his discharge paperwork. Staff will contact you after discharge via phone call to follow up on post discharge treatment and status of your participations in care after discharge. Patient Signature Date Legally Authorized Hematology Supervisor Date Boat Puller/Documentation Lead Date Registered Nurse Date
--- NOTE | 2018-03-27 14:55 | NUR ---
MOSES met with pt, and sister Landy over the phone to discuss option for assisting pt with assign payee through outside agency or social security adminstration. MOSES referred pt [facility] and [facility] for payee services. MOSES assisted pt with scheduling appointment through [place] [facility] ss[facility] for outpatient services for psychiatric, and case management. MOSES recommended pt to apply for [place] low income apartments to sustain housing. MOSES recommended pt to call back once housing was suistained to obtain an letter for household housing voucher. Moses assisted pt with obtain his medication, and transportation to the [employer] [facility]. Landy stated that this will be a temproarily arrangement until her brother Enrique comes back into town. MOSES will follow-up with pt upon discharge.
== END 2018-03-27 12:00 | disposition home or self-care (01) | DRG 885 ==
LOC: SBH
PROVIDERS: ADMIT Psychiatry & Neurology Psychiatry
DX: F31.9 Bipolar disorder, unspecified (principal); F23 Brief psychotic disorder; I10 Essential (primary) hypertension; J44.9 Chronic obstructive pulmonary disease, unspecified; E78.2 Mixed hyperlipidemia; F10.10 Alcohol abuse, uncomplicated; Z79.899 Other long term (current) drug therapy; Z91.19 Patient's noncompliance with other medical treatment and regimen
CPT/HCPCS: 10880

== ENCOUNTER 2018-03-27 20:10 | Emergency (ER) | payer OTHER ==
[~2018-03-27] VITALS: Ht 165.1 cm; Wt 65.8 kg
[~2018-03-27 20:10] MED LIST changes: +OXCARBAZEPINE300 MG PO; +RISPERDAL 1 MG T1 MG PO
[2018-03-27 20:11] VITALS: BP 131/63
== END 2018-03-27 21:13 | disposition home or self-care (01) ==
LOC: ER 20:10
DX: F30.9 Manic episode, unspecified (principal); Z59.0 Homelessness; F17.210 Nicotine dependence, cigarettes, uncomplicated; J44.9 Chronic obstructive pulmonary disease, unspecified; Z90.49 Acquired absence of other specified parts of digestive tract

== ENCOUNTER 2018-05-31 02:40 | Emergency (ER) | payer OTHER ==
[~2018-05-31] VITALS: Ht 165.1 cm; Wt 68.0 kg
[2018-05-31] MEDS ORDERED: VENTOLIN HFA 1818 GM INH (02:51)
[2018-05-31 03:13] VITALS: BP 117/64
== END 2018-05-31 03:13 | disposition home or self-care (01) ==
LOC: ER 02:40
DX: F90.9 Attention-deficit hyperactivity disorder, unspecified type (principal); R06.2 Wheezing; F17.210 Nicotine dependence, cigarettes, uncomplicated; J44.9 Chronic obstructive pulmonary disease, unspecified; Z90.49 Acquired absence of other specified parts of digestive tract

== ENCOUNTER 2018-09-22 12:11 | Emergency (ER) | payer OTHER ==
[~2018-09-22] VITALS: Ht 167.6 cm; Wt 81.7 kg
[~2018-09-22 12:11] MED LIST changes: +VENTOLIN HFA 1818 GM INH
[2018-09-22 15:05] LABS: BASOPHILS 1.2 % (0.0-2.0); EOSINOPHILS 2.8 % (0.0-3.0); HEMATOCRIT 42.3 % (42.0-52.0); HEMOGLOBIN 14.5 gm/dL (14.0-18.0); LYMPHOCYTES 24.1 % (24.0-44.0); MCH 31.4 pg (26.0-34.0); MCHC 34.3 g/dL (28.0-37.0); MCV 91.3 fL (80.0-100.0); MONOCYTES 8.9 % (1.0-8.0); PLATELET COUNT 225 thou/uL (150-400); RBC 4.63 mil/uL (4.50-6.00); RDW 16.7 % (10.5-14.5); WBC 6.4 thou/uL (4.0-11.0)
[2018-09-22 15:14] LABS: CALCIUM 8.1 mg/dL (8.5-10.1); POTASSIUM 3.7 mmol/L (3.5-5.1)
[2018-09-22 15:20] LABS: ALBUMIN 2.8 g/dL (3.4-5.0); TOTAL BILIRUBIN 0.3 mg/dL (<0.1-1.0); TOTAL PROTEIN 7.3 g/dL (6.4-8.2)
[2018-09-22] MEDS ORDERED: CLEOCIN HCL150 MG PO (19:42)
[2018-09-22 19:56] VITALS: BP 128/64
== END 2018-09-22 20:01 | disposition home or self-care (01) ==
LOC: ER 12:11
PROVIDERS: Physician Assistant
DX: M27.2 Inflammatory conditions of jaws (principal); J44.9 Chronic obstructive pulmonary disease, unspecified; F17.210 Nicotine dependence, cigarettes, uncomplicated; Z87.01 Personal history of pneumonia (recurrent); Z90.49 Acquired absence of other specified parts of digestive tract